=== PATIENT | female | born 1995 | race Caucasian/White ===

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

== ENCOUNTER 2017-09-20 17:07 | Emergency (ER) | payer OTHER ==
[2017-09-20 17:21] LABS: URINE HCG POC HCG NEGATIVE (Negative)
[2017-09-20] MEDS: IBUPROFEN 600 MG TABLET. PO (17:47)
[2017-09-20 17:54] LABS: BILIRUBIN,URINE NEGATIVE (NEG); CLARITY,URINE CLEAR; COLOR,URINE YELLOW; GLUCOSE,URINE NEGATIVE (NEG); NITRITE,URINE NEGATIVE (NEG); PH,URINE 5.5; PROTEIN,URINE NEGATIVE (NEG-TRACE); UROBILINOGEN,URINE 0.2 mg/dL (0.2 mg/dL)
[2017-09-20 18:00] LABS: BACTERIA,URINE MODERATE /HPF (0-FEW); RBC,URINE 0 /HPF (0-2); SQUAMOUS EPITHELIAL CELL,UR MOD /LPF
== END 2017-09-20 20:01 | disposition left against medical advice (07) ==
LOC: ER 17:07
DX: N73.9 Female pelvic inflammatory disease, unspecified (principal); Z90.49 Acquired absence of other specified parts of digestive tract
CPT/HCPCS: 76830; 76856; 81001; 81025; 87086; 99285-25; Q0111

== ENCOUNTER 2017-09-20 20:54 | Emergency (ER) | payer OTHER ==
[2017-09-20] MEDS: metroNIDAZOLE 500 MG TABLET PO (21:46)
[2017-09-20] MEDS: cefTRIAXone IM 250 MG VIAL IM (21:46)
[2017-09-20] MEDS: DOXYCYCLINE HYCLATE 100 MG TABLET PO (21:46)
== END 2017-09-20 22:12 | disposition home or self-care (01) ==
LOC: ER 20:54
DX: N73.9 Female pelvic inflammatory disease, unspecified (principal); Z90.49 Acquired absence of other specified parts of digestive tract
CPT/HCPCS: 96372; 99285-25; J0696; Q0111

== ENCOUNTER 2018-03-03 20:48 | Emergency (ER) | payer OTHER ==
[2018-03-03 21:12] LABS: URINE HCG POC HCG NEGATIVE (Negative)
[2018-03-03 21:12] LABS: BILIRUBIN,URINE NEGATIVE (NEG); CLARITY,URINE CLEAR; COLOR,URINE YELLOW; GLUCOSE,URINE NEGATIVE (NEG); NITRITE,URINE NEGATIVE (NEG); PROTEIN,URINE NEGATIVE (NEG-TRACE); UROBILINOGEN,URINE 0.2 mg/dL (0.2 mg/dL)
[2018-03-03 21:19] LABS: BACTERIA,URINE FEW /HPF (0-FEW); RBC,URINE 0 /HPF (0-2); SQUAMOUS EPITHELIAL CELL,UR MOD /LPF; WBC,URINE 0 /HPF (0-4)
[2018-03-03] MEDS: AZITHROMYCIN 250 MG TABLET. PO (21:56)
[2018-03-03] MEDS: cefTRIAXone IM 250 MG VIAL IM (21:56)
[2018-03-05 14:31] LABS: CHLAMYDIA PROBE Negative (Negative); GC PROBE Negative (Negative)
== END 2018-03-03 22:43 | disposition home or self-care (01) ==
LOC: ER 22:43
DX: N76.0 Acute vaginitis (principal); B96.89 Other specified bacterial agents as the cause of diseases classified elsewhere; Z20.2 Contact with and (suspected) exposure to infections with a predominantly sexual mode of transmission
CPT/HCPCS: 81001; 81025; 87491; 87591; 96372; 99284-25; J0696; Q0111; Q0144

== ENCOUNTER 2018-05-29 01:25 | Emergency (ER) | payer OTHER ==
[~2018-05-29] VITALS: Ht 165.1 cm; Wt 59.0 kg
[~2018-05-29 01:25] MED LIST: DOXY100C2 PO; HYDR-971 PO; METR500T PO; NAPR-682 PO; ONDA4TAB10 SL; ORPH100T PO
[2018-05-29] MEDS ORDERED: IV NORMAL SALINE 1000ML BAG 1,000 ML IV ONE (01:45)
[2018-05-29 01:48] VITALS: BP 126/54
[2018-05-29 01:52] LABS: BILIRUBIN,URINE NEGATIVE (NEG); CLARITY,URINE CLEAR; COLOR,URINE YELLOW; NITRITE,URINE NEGATIVE (NEG); PH,URINE 5.5; PROTEIN,URINE NEGATIVE (NEG-TRACE); UROBILINOGEN,URINE 0.2 mg/dL (0.2 mg/dL)
[2018-05-29] MEDS ORDERED: METOCLOPRAMIDE HCL 10 MG/2 ML VIAL. IV ONE (02:00)
[2018-05-29 02:07] LABS: BACTERIA,URINE FEW /HPF (0-FEW); SQUAMOUS EPITHELIAL CELL,UR MOD /LPF
[2018-05-29 02:14] LABS: BASO # 0.1 x10^3/uL (0.0-0.2); BASO % 1 % (0-3); EOS # 0.2 x10^3/uL (0.0-0.7); EOS % 2 % (0-3); HEMATOCRIT 36.6 % (36.0-47.0); HEMOGLOBIN 12.7 g/dL (12.0-15.5); LYMPH # 2.8 x10^3/uL (1.0-4.8); LYMPH % 29 % (24-48); MEAN CORPUSCULAR HEMOGLOBIN 31 pg (25-35); MEAN CORPUSCULAR HGB CONC 35 g/dL (31-37); MEAN CORPUSCULAR VOLUME 89 fL (79-100); MONO % 11 % (0-9); NEUT # 5.6 x10^3uL (1.8-7.7); NEUT % 57 % (31-73); PLATELET COUNT 306 x10^3/uL (140-400); RED CELL DISTRIBUTION WIDTH 13.7 % (11.5-14.5); WHITE BLOOD COUNT 9.7 x10^3/uL (4.0-11.0)
[2018-05-29] MEDS ORDERED: MORPHINE SULFATE 4 MG/ML VIAL. IV ONE (02:15)
[2018-05-29] MEDS ORDERED: KETOROLAC 15 MG/ML VIAL. ONE (02:17)
--- NOTE | 2018-05-29 02:17 | PHYS DOC ---
Past Medical History Past Medical History: No Pertinent History Past Surgical History: Appendectomy, Other Additional Past Surgical Histo: T&M tubes Alcohol Use: None Drug Use: None Adult General Chief Complaint Chief Complaint: FLANK PAIN HPI HPI 22-year-old female presents to emergency department with left flank pain. States it does not radiate. States that it started 3 days ago and she was seen at [facility] where CT scan was performed. CT scan was normal. She was found to have blood in her urine. She was given Rocephin and placed on oral antibiotic as an outpatient. States that she was doing well until 9 PM this evening when she had a return of left flank pain. She denies any vomiting. Denies any fevers. Review of Systems Review of Systems Constitutional: Denies fever or chills Eyes: Denies change in visual acuity, redness, or eye pain HENT: Denies nasal congestion or sore throat Respiratory: Denies cough or shortness of breath GI: Denies abdominal pain, nausea, vomiting, bloody stools or diarrhea Integument: Denies rash or skin lesions Neurologic: Denies headache, focal weakness or sensory changes Endocrine: Denies polyuria or polydipsia All other systems were reviewed and found to be within normal limits, except as documented in this note. Family History Family History none relevant to today's presentation Current Medications Current Medications Current Medications Medications (Trade) Dose Ordered Sig/Fly Start Time Stop Time Status Last Admin Dose Admin Ketorolac Tromethamine (Toradol 15mg Vial) 15 mg STK-MED ONCE 05/29/18 02:17 05/29/18 02:18 DC Metoclopramide HCl (Reglan Vial) 10 mg 1X ONCE 05/29/18 02:00 05/29/18 02:12 DC Morphine Sulfate (Morphine Sulfate) 4 mg 1X ONCE 05/29/18 02:15 05/29/18 02:15 DC Sodium Chloride 1,000 ml @ 1,000 mls/hr 1X ONCE 05/29/18 01:45 05/29/18 02:44 DC 05/29/18 01:45 1,000 MLS/HR Allergies Allergies Allergies Coded Allergies Type Severity Reaction Last Updated Verified No Known Drug Allergies 02/14/15 No Physical Exam Physical Exam GENERAL: Awake, alert, well appearing, nontoxic HEAD/NECK/EYES: Normocephalic, Neck supple, PERRL ENT Airway patent, mucous membranes moist RESP: Nontachypneic, no respiratory distress, normal breath sounds bilaterally CV: Regular rhythm, normal perfusion ABD/GI: Soft, non-tender, no guarding, no rebound, no palpable pulsatile mass BACK: Left-sided paraspinal muscle tenderness in the thoracic and lumbar region , no CVA tenderness EXT: Neurovascularly intact, no deformities SKIN: Warm, dry NEURO: Oriented X3, normal speech, no motor deficits, no sensory deficits, CN II - XII intact PSYCH: Cooperative, appropriate affect Current Patient Data Vital Signs Vital Signs Date Time Temp Pulse Resp B/P (MAP) Pulse Ox O2 Delivery O2 Flow Rate FiO2 05/29/18 01:48 98.3 76 18 126/54 (78) 99 Room Air 98.3 Lab Values Laboratory Tests Test 05/29/18 01:32 05/29/18 01:45 05/29/18 02:03 Urine Collection Type Unknown Urine Color Yellow Urine Clarity Clear Urine pH 5.5 Urine Specific [place] 1.015 Urine Protein Negative mg/dL (NEG-TRACE) Urine Glucose (UA) Negative mg/dL (NEG) Urine Ketones (Stick) Negative mg/dL (NEG) Urine Blood Moderate (NEG) Urine Nitrite Negative (NEG) Urine Bilirubin Negative (NEG) Urine Urobilinogen Dipstick 0.2 mg/dL (0.2 mg/dL) Urine Leukocyte Esterase Negative (NEG) Urine RBC 1-2 /HPF (0-2) Urine WBC 1-4 /HPF (0-4) Urine Squamous Epithelial Cells Mod /LPF Urine Bacteria Few /HPF (0-FEW) Urine Mucus Mod /LPF POC Urine HCG, Qualitative Hcg negative (Negative) White Blood Count 9.7 x10^3/uL (4.0-11.0) Red Blood Count 4.10 x10^6/uL (3.50-5.40) Hemoglobin 12.7 g/dL (12.0-15.5) Hematocrit 36.6 % (36.0-47.0) Mean Corpuscular Volume 89 fL (79-100) Mean Corpuscular Hemoglobin 31 pg (25-35) Mean Corpuscular Hemoglobin Concent 35 g/dL (31-37) Red Cell Distribution Width 13.7 % (11.5-14.5) Platelet Count 306 x10^3/uL (140-400) Neutrophils (%) (Auto) 57 % (31-73) Lymphocytes (%) (Auto) 29 % (24-48) Monocytes (%) (Auto) 11 % (0-9) H Eosinophils (%) (Auto) 2 % (0-3) Basophils (%) (Auto) 1 % (0-3) Neutrophils # (Auto) 5.6 x10^3uL (1.8-7.7) Lymphocytes # (Auto) 2.8 x10^3/uL (1.0-4.8) Monocytes # (Auto) 1.0 x10^3/uL (0.0-1.1) Eosinophils # (Auto) 0.2 x10^3/uL (0.0-0.7) Basophils # (Auto) 0.1 x10^3/uL (0.0-0.2) Urine Opiates Screen Neg (NEG) Urine Methadone Screen Neg (NEG) Urine Barbiturates Neg (NEG) Urine Phencyclidine Screen Neg (NEG) Urine Amphetamine/Methamphetamine Neg (NEG) Urine Benzodiazepines Screen Neg (NEG) Urine Cocaine Screen Neg (NEG) Urine Cannabinoids Screen Pos (NEG) Urine Ethyl Alcohol Neg (NEG) Laboratory Tests 05/29/18 02:03 EKG EKG [] Radiology/Procedures Radiology/Procedures [] Impressions: Left low back strain, left thoracic back strain Course & Med Decision Making Course & Med Decision Making Pertinent Labs and Imaging studies reviewed. (See chart for details) Workup in the emergency department is reassuring. Labs normal, vital signs stable, pain improved. Stable throughout emergency department stay. Given anti- inflammatories and muscle relaxers. Advised to return with any new or worsening symptoms. Patient is agreeable to plan and stable for discharge. Dragon Disclaimer Dragon Disclaimer This electronic medical record was generated, in whole or in part, using a voice recognition dictation system. Departure Departure Impression: Primary Impression: Lumbosacral strain Additional Impression: Thoracic back sprain Disposition: 01 HOME, SELF-CARE Condition: STABLE Referrals: NO PCP (PCP) Patient Instructions: Back Pain, Adult Scripts Naproxen (NAPROSYN) 500 Mg Tablet 1 TAB PO BID PRN for PAIN for 5 Days, #10 TAB 1 Refill Prov: MADY CHENG DO 05/29/18 Methocarbamol (ROBAXIN) 500 Mg Tablet 1 TAB PO TID PRN PRN for MUSCLE PAIN, #15 TAB Prov: MADY CHENG DO 05/29/18 Problem Qualifiers MADY CHENG DO May 29, 2018 02:17
[2018-05-29] MEDS ORDERED: KETOROLAC 15 MG/ML VIAL. IV ONE (02:30)
[2018-05-29 02:35] LABS: AMPHETAMINE/METHAMPHETAMINE NEG (NEG); BARBITURATES NEG (NEG); BENZODIAZEPINES NEG (NEG); CANNABINOIDS POS (NEG); COCAINE NEG (NEG); METHADONE NEG (NEG); OPIATES NEG (NEG); PHENCYCLIDINE NEG (NEG)
[2018-05-29] MEDS ORDERED: NAPR-683 PO (03:09)
[2018-05-29] MEDS ORDERED: METH-37 PO (03:09)
== END 2018-05-29 03:30 | disposition home or self-care (01) ==
LOC: ER 01:25
DX: S23.3XXA Sprain of ligaments of thoracic spine, initial encounter (principal); S39.012A Strain of muscle, fascia and tendon of lower back, initial encounter; R10.9 Unspecified abdominal pain; Z90.89 Acquired absence of other organs; X58.XXXA Exposure to other specified factors, initial encounter; Y93.89 Activity, other specified; Y92.89 Other specified places as the place of occurrence of the external cause; Y99.8 Other external cause status
CPT/HCPCS: 36415; 80307; 81001; 81025; 85025; 87491; 87591; 96374; 99284; J1885; J7030; G0479

== ENCOUNTER 2018-07-19 00:04 | Emergency (ER) | payer OTHER ==
[~2018-07-19] VITALS: Ht 167.6 cm; Wt 61.2 kg
[~2018-07-19 00:04] MED LIST changes: +METH-37 PO; +NAPR-683 PO
[2018-07-19 00:24] VITALS: BP 105/55
--- NOTE | 2018-07-19 01:11 | PHYS DOC ---
Past Medical History Past Medical History: No Pertinent History Past Surgical History: No Surgical History, Appendectomy, Other Additional Past Surgical Histo: T&M tubes Alcohol Use: None Drug Use: None Adult General Chief Complaint Chief Complaint: KNEE INJURY HPI HPI Patient is a 22 year old female who presents with left knee pain. Patient began having severe left knee pain earlier this evening after she awoke. She did not have any trauma. No fever or chills. The patient does not use tobacco or any illicit drugs. She has never had similar symptoms in the past. 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 Review of Systems Review of Systems Constitutional: Denies fever or chills Eyes: Denies change in visual acuity HENT: Denies nasal congestion or sore throat Respiratory: Denies cough or shortness of breath Cardiovascular: No additional information GI: Denies abdominal pain : Denies dysuria Musculoskeletal: Denies back pain Integument: Denies rash Neurologic: Denies headache Endocrine: Denies polyuria All other systems were reviewed and found to be within normal limits, except as documented in this note. Current Medications Current Medications Current Medications Medications (Trade) Dose Ordered Sig/Fly Start Time Stop Time Status Last Admin Dose Admin Ibuprofen (Motrin) 800 mg 1X ONCE 07/19/18 01:45 07/19/18 01:46 DC Morphine Sulfate (Morphine Sulfate) 10 mg 1X ONCE 07/19/18 01:30 07/19/18 01:31 DC 07/19/18 01:27 10 MG Allergies Allergies Allergies Coded Allergies Type Severity Reaction Last Updated Verified No Known Drug Allergies 02/14/15 No Physical Exam Physical Exam Constitutional: Well developed, well nourished, no acute distress, non-toxic appearance HENT: Normocephalic, atraumatic, bilateral external ears normal, oropharynx moist Eyes: PERRLA, EOMI, conjunctiva normal Neck: Normal range of motion, no tenderness Cardiovascular:Heart rate regular rhythm Lungs & Thorax: Bilateral breath sounds clear Skin: Warm, dry, no erythema, no rash Extremities: no erythema, local fever, or effusion found on the left knee. Pain is primarily over the medial aspect and joint line with palpation. no ligamentous laxity. passive ROM is mildly tender but ROM is possible and she tolerates. Neurologic: Alert and oriented X 3 Psychologic: Affect normal Current Patient Data Vital Signs Vital Signs Date Time Temp Pulse Resp B/P (MAP) Pulse Ox O2 Delivery O2 Flow Rate FiO2 07/19/18 01:27 18 98 Room Air 07/19/18 00:24 98.5 107 105/55 (72) 98.5 Lab Values Laboratory Tests Test 07/19/18 01:20 POC Urine HCG, Qualitative Hcg negative (Negative) EKG EKG [] Radiology/Procedures Radiology/Procedures No acute findings. Course & Med Decision Making Course & Med Decision Making Pertinent Labs and Imaging studies reviewed. (See chart for details) 01:00: Patient is seen and examined. No acute findings on initial physical exam other than some TTP over the medial aspect of the joint. Pain meds ordered. UCG (LMP one month earlier). Xray. X-ray is negative. The patient's pain is much improved after morphine and ibuprofen. Her test was negative. Uncertain etiology for her sudden onset of pain. She has tenderness over the anserine bursa area that is exquisite. Consideration is of course given for septic joint or gonococcal arthritis given her age. Patient has no vaginal symptoms. She states she has had a monogamous relationship for several years and she does not have concerns for STD. Regarding the possibility of a septic joint, the joint can passively be ranged. There is no local erythema or swelling or effusion. This makes the likelihood of septic joint very small. Patient will be discharged home with medications for inflammation and pain. She is placed in an immobilizer to be worn only during the day for comfort. She is provided a work release. She is advised to follow-up with orthopedics assuming no acute changes in her symptoms recur. If she does develop erythema or effusion or inability to range, the patient is advised to come back to the emergency department immediately. Dragon Disclaimer Dragon Disclaimer This electronic medical record was generated, in whole or in part, using a voice recognition dictation system. Departure Departure Referrals: NO PCP (PCP) Scripts Hydrocodone/Apap 5-325 (NORCO 5-325 TABLET) 1 Each Tablet 1-2 EACH PO PRN Q6HRS PRN for severe pain, #20 as needed for pain Prov: SOPHIE KILGORE DO 07/19/18 Ibuprofen (IBUPROFEN) 800 Mg Tablet 800 MG PO PRN TID PRN for PAIN, #30 TAB take with food or milk to avoid upsetting stomach Prov: SOPHIE KILGORE DO 07/19/18 SOPHIE KILGORE DO Jul 19, 2018 01:11
[2018-07-19] MEDS ORDERED: MORPHINE SULFATE 10 MG/ML VIAL. IM ONE (01:30)
--- NOTE | 2018-07-19 01:42 | RAD ---
3 views left knee HISTORY: Pain AP lateral oblique The visualized osseous structures appear normal. IMPRESSION: No acute findings. Electronically signed by: Ezequiel Tan III, MD (07/19/2018 1:40 AM) [facility]
[2018-07-19] MEDS ORDERED: IBUPROFEN 400 MG TABLET. PO ONE (01:45)
[2018-07-19] MEDS ORDERED: IBUP-1060 PO (01:55)
[2018-07-19] MEDS ORDERED: HYDR-971 PO (01:55)
== END 2018-07-19 02:04 | disposition home or self-care (01) ==
LOC: ER 00:04
DX: M25.562 Pain in left knee (principal); M13.162 Monoarthritis, not elsewhere classified, left knee
CPT/HCPCS: 29505; 73562; 81025; 96372; 99284; J2270

== ENCOUNTER 2019-05-08 12:16 | Emergency (ER) | payer SELFPAY ==
[~2019-05-08] VITALS: Ht 165.1 cm; Wt 56.7 kg
[~2019-05-08 12:16] MED LIST changes: +HYDR-3164 PO; -HYDR-971 PO; +IBUP-1060 PO
[2019-05-08 12:38] VITALS: BP 116/55
[2019-05-08] MEDS ORDERED: NAPROXEN 500 MG TABLET PO STA (13:35)
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
[2019-05-08] MEDS ORDERED: ORPH100T PO (14:10)
[2019-05-08] MEDS ORDERED: NAPR-514 PO (14:10)
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
== END 2019-05-08 14:19 | disposition home or self-care (01) ==
LOC: ER 12:16
DX: S46.811A Strain of other muscles, fascia and tendons at shoulder and upper arm level, right arm, initial encounter (principal); M25.521 Pain in right elbow; R20.2 Paresthesia of skin; Z90.89 Acquired absence of other organs; V43.62XA Car passenger injured in collision with other type car in traffic accident, initial encounter; Y93.89 Activity, other specified; Y92.410 Unspecified street and highway as the place of occurrence of the external cause; Y99.8 Other external cause status
CPT/HCPCS: 73030; 73080; 99284